=== PATIENT | male | born 2000 | race Caucasian/White ===

== ENCOUNTER 2020-11-02 10:33 | Emergency (ER) | payer OTHER ==
[2020-11-02] MEDS ORDERED: ONDANSETRON HCL INJ/PF 4 MG/2 ML SDV IV ONE (10:54)
[2020-11-02] MEDS ORDERED: NORMAL SALINE 1000 ML 1,000 ML IV ONE (10:54)
--- NOTE | 2020-11-02 10:56 | ER Document Report ---
ED Medical Screen (RME) - General Chief Complaint: Vomiting Stated Complaint: VOMITING Time Seen by Provider: 11/02/20 10:54 Notes: Patient presents complaining of multiple complaints including sore throat cough, nausea vomiting and diarrhea for the past 2 days. Patient denies any fever or urinary symptoms. Patient reports vomiting multiple times yesterday although no episodes today. Patient reports diarrhea x1 episode today. Patient does report sick contacts in the household recently. I have greeted and performed a rapid initial assessment of this patient. A comprehensive ED assessment and evaluation of the patient, analysis of test results and completion of the medical decision making process will be conducted by additional ED providers. (DANNY RIOS) - Related Data Allergies/Adverse Reactions: No Known Allergies Allergy (Verified 11/02/20 10:51) Physical Exam - HEENT Pharynx: Erythema. No: Peritonsillar abscess - Respiratory Respiratory status: No respiratory distress Breath sounds: Nonproductive cough - Vital signs Vitals: Temp Pulse Resp BP Pulse Ox 98.2 F 95 20 146/75 H 98 11/02/20 10:47 11/02/20 10:47 11/02/20 10:47 11/02/20 10:47 11/02/20 10:47 Course - Vital Signs Vital signs: Temp Pulse Resp BP Pulse Ox 98.2 F 95 20 146/75 H 98 11/02/20 10:52 11/02/20 10:47 11/02/20 10:47 11/02/20 10:47 11/02/20 10:47
--- NOTE | 2020-11-02 11:16 | ER Document Report ---
ED GI/ - General Chief Complaint: Flu Symptoms Stated Complaint: VOMITING Time Seen by Provider: 11/02/20 10:54 Mode of Arrival: Ambulatory Information source: Patient Notes: 11/02/20 10:52 - ED Nursing Note by JUDE DILLON Num: [id number] : 2000 Patient Age: 20 pt reports for the past 2 days he has not been able to eat. states when he does he vomits. states not really having nausea. states diarrhea this am. no vomiting today. diarrhea x 1 today. states unsure of fever. states no way to check. states sore throat. cough. ED Medical Screen (Areli mathews) - General Chief Complaint: Vomiting Stated Complaint: VOMITING Time Seen by Provider: 11/02/20 10:54 Notes: Patient presents complaining of multiple complaints including sore throat cough, nausea vomiting and diarrhea for the past 2 days. Patient denies any fever or urinary symptoms. Patient reports vomiting multiple times yesterday although no episodes today. Patient reports diarrhea x1 episode today. Patient does report sick contacts in the household recently. MY NOTES 20-year-old male arrives with chief complaint of having sore throat for 2 days with poor appetite and nausea vomiting diarrhea mild cough nonproductive and headache denies any nuchal rigidity. Patient works at [employer] and denies any fellow workers that are sick. He denies any family members that are sick or friends that are sick. TRAVEL OUTSIDE OF THE [place] IN LAST 30 DAYS: No - Related Data Allergies/Adverse Reactions: No Known Allergies Allergy (Verified 11/02/20 12:05) Home Medications: vyvanse. ritalin. clonidine Past Medical History - General Information source: Patient - Social History Smoking Status: Former Smoker Cigarette use (# per day): No Chew tobacco use (# tins/day): Yes Smoking Education Provided: No Frequency of alcohol use: Social Drug Abuse: None Lives with: Family Family History: Reviewed & Not Pertinent Patient has suicidal ideation: No Patient has homicidal ideation: No Review of Systems - Review of Systems Constitutional: No symptoms reported, See HPI, Weakness EENT: No symptoms reported Cardiovascular: No symptoms reported Respiratory: No symptoms reported Gastrointestinal: No symptoms reported Genitourinary: No symptoms reported Male Genitourinary: No symptoms reported Musculoskeletal: No symptoms reported Skin: No symptoms reported Hematologic/Lymphatic: No symptoms reported Neurological/Psychological: No symptoms reported Physical Exam - Vital signs Vitals: Temp Pulse Resp BP Pulse Ox 98.2 F 95 20 146/75 H 98 11/02/20 10:47 11/02/20 10:47 11/02/20 10:47 11/02/20 10:47 11/02/20 10:47 Interpretation: Normal - General General appearance: Alert - HEENT Head: Normocephalic, Atraumatic Eyes: Normal Pupils: PERRL Sinus: Normal Nasal: Normal Mouth/Lips: Normal Mucous membranes: Dry Pharynx: Erythema Neck: Normal - Respiratory Respiratory status: No respiratory distress Chest status: Nontender Breath sounds: Normal Chest palpation: Normal - Cardiovascular Rhythm: Regular Heart sounds: Normal auscultation Murmur: No - Abdominal Inspection: Normal Distension: No distension Bowel sounds: Normal Tenderness: Nontender Organomegaly: No organomegaly - Rectal Prostate: Other - Deferred - Genitourinary Scrotum: Other - Deferred - Back Back: Normal, Nontender - Extremities General upper extremity: Normal inspection, Nontender, Normal color, Normal ROM, Normal temperature General lower extremity: Normal inspection, Nontender, Normal color, Normal ROM, Normal temperature, Normal weight bearing. No: Cristobal's sign - Neurological Neuro grossly intact: Yes Cognition: Normal Orientation: AAOx4 [place] Coma Scale Eye Opening: Spontaneous [place] Coma Scale Verbal: Oriented [place] Coma Scale Motor: Obeys Commands [place] Coma Scale Total: 15 Speech: Normal Motor strength normal: LUE, RUE, LLE, RLE Sensory: Normal - Psychological Associated symptoms: Normal affect, Normal mood - Skin Skin Temperature: Warm Skin Moisture: Dry Skin Color: Normal Course - Vital Signs Vital signs: Temp Pulse Resp BP Pulse Ox 98.2 F 95 20 146/75 H 98 11/02/20 10:52 11/02/20 10:47 11/02/20 10:47 11/02/20 10:47 11/02/20 10:47 - Laboratory Results Result Diagrams: 11/02/20 11:45 11/02/20 11:45 Laboratory Results Interpreted: 11/02/20 11/02/20 11:45 14:05 Sodium 136.5 L Urine Ketones 20 H Critical Laboratory Results Reviewed: Yes Attending or Supervising Physician who Reviewed Labs: KIZZY RAMOS JR - Radiology Results Critical Radiology Results Reviewed: Yes Attending or Supervising Physician who Reviewed Radiology: KIZZY RAMOS JR Discharge - Discharge Clinical Impression: Gastroenteritis due to norovirus, COVID-19 virus RNA test result unknown, Dehydration Condition: Stable Disposition: HOME, SELF-CARE Instructions: Vomiting ([facility]), COVID-19 Guidance for Persons Under Investigation, Antinausea Medication ([facility]) Additional Instructions: Off work as directed till after [place]; return to ER as needed avoid milk and meat products for least 48 hours. Try to consume brat diet that is bananas rice applesauce toast oliva adrián crackers until able to resume regular diet. Avoid aspirin orange juice or citrus or other consumption that is acidic. Do this for least 1 week. Encourage off work and avoidance with immunocompromised peoples or transplant people's. Please stay quarantined until your COVID-19 test returns. Prescriptions: Dexamethasone [Decadron 4 Mg Tablet] 4 mg PO DAILY #5 tablet Famotidine [Pepcid] 20 mg PO BID #20 tablet Promethazine HCl [Phenergan 25 mg Tablet] 1 - 2 tab PO Q6H PRN #15 tablet PRN Reason: Azithromycin [Zithromax 250 mg Tablet] 250 mg PO ASDIR PRN #6 tablet PRN Reason: Forms: Return to Work
--- NOTE | 2020-11-02 11:38 | RADIOLOGY REPORT (SQ) ---
EXAM DESCRIPTION: CHEST SINGLE VIEW IMAGES COMPLETED DATE/TIME: 11/02/2020 11:17 am REASON FOR STUDY: cough COMPARISON: None. EXAM PARAMETERS: NUMBER OF VIEWS: One view. TECHNIQUE: Single frontal radiographic view of the chest acquired. RADIATION DOSE: NA LIMITATIONS: None. FINDINGS: LUNGS AND PLEURA: No opacities, masses or pneumothorax. No pleural effusion. MEDIASTINUM AND HILAR STRUCTURES: No masses. Contour normal. HEART AND VASCULAR STRUCTURES: Heart normal in size. Normal vasculature. BONES: No acute findings. HARDWARE: None in the chest. OTHER: No other significant finding. IMPRESSION: NO ACUTE RADIOGRAPHIC FINDING IN THE CHEST. TECHNICAL DOCUMENTATION: JOB ID: [id number] 2010 [employer]- All Rights Reserved Reading location - IP/workstation name: [email or web address]
[2020-11-02 12:18] LABS: ABSOLUTE BASOPHILS # (AUTO) 0.1 10^3/uL (0.0-0.2); ABSOLUTE EOSINOPHILS # (AUTO) 0.5 10^3/uL (0.0-0.6); ABSOLUTE LYMPHOCYTES (AUTO) 1.5 10^3/uL (0.5-4.7); ABSOLUTE MONOCYTES (AUTO) 0.8 10^3/uL (0.1-1.4); ABSOLUTE NEUT (AUTO) 5.8 10^3/uL (1.7-8.2); EOSINOPHILS % (AUTO) 5.9 % (0-6); HEMATOCRIT 45.8 % (37.9-51.0); HEMOGLOBIN 15.7 g/dL (13.5-17.0); LYMPHOCYTES % (AUTO) 17.6 % (13-45); MEAN CORPUSCULAR HEMOGLOBIN 31.1 pg (27.0-33.4); MEAN CORPUSCULAR HGB CONC 34.3 g/dL (32.0-36.0); MEAN CORPUSCULAR VOLUME 91 fl (80-97); MONOCYTES % (AUTO) 9.4 % (3-13); PLATELET COUNT 211 10^3/uL (150-450); RED BLOOD COUNT 5.04 10^6/uL (4.35-5.55); RED CELL DISTRIBUTION WIDTH 13.1 % (11.5-14.0); SEGMENTED NEUTROPHILS % (AUTO) 66.1 % (42-78); TOTAL CELLS COUNTED % (AUTO) 100 %; WHITE BLOOD COUNT 8.7 10^3/uL (4.0-10.5)
[2020-11-02 12:34] LABS: ALBUMIN 4.7 g/dL (3.5-5.0); ALKALINE PHOSPHATASE 91 U/L (38-126); ANION GAP 6 (5-19); ASPARTATE AMINO TRANSFERASE 24 U/L (17-59); BILIRUBIN,DIRECT 0.1 mg/dL (0.0-0.4); BILIRUBIN,TOTAL 0.5 mg/dL (0.2-1.3); BLOOD UREA NITROGEN 11 mg/dL (7-20); CALCIUM 9.7 mg/dL (8.4-10.2); CARBON DIOXIDE 30 mmol/L (22-30); CHLORIDE 101 mmol/L (98-107); GLUCOSE 103 mg/dL (75-110); POTASSIUM 4.6 mmol/L (3.6-5.0); TOTAL PROTEIN 7.4 g/dL (6.3-8.2)
[2020-11-02 12:56] LABS: A TYPE INFLUENZA AG NEGATIVE (NEGATIVE); B INFLUENZA AG NEGATIVE (NEGATIVE)
[2020-11-02 14:23] LABS: APPEARANCE,URINE CLEAR; BILIRUBIN,URINE NEGATIVE (NEGATIVE); COLOR,URINE YELLOW; GLUCOSE, URINE NEGATIVE (NEGATIVE); KETONES,URINE 20 mg/dL (NEGATIVE); LEUKOCYTE ESTERASE,URINE NEGATIVE (NEGATIVE); NITRITE,URINE NEGATIVE (NEGATIVE); PROTEIN,URINE NEGATIVE (NEGATIVE); URINE SPECIFIC GRAVITY 1.008; UROBILINOGEN,URINE NEGATIVE mg/dL (<2.0)
[2020-11-02 16:44] VITALS: BP 139/69
== END 2020-11-02 17:01 | disposition home or self-care (01) ==
LOC: ER 10:33
DX: A08.11 Acute gastroenteropathy due to Norwalk agent (principal); J02.9 Acute pharyngitis, unspecified; E86.0 Dehydration; R11.2 Nausea with vomiting, unspecified; R05 Cough; Z20.828 Contact with and (suspected) exposure to other viral communicable diseases
CPT/HCPCS: 99284; 96361; 96374; 36415; 87070; 87880; 83690; 85025; 87635; 80053; 81001; 87804; 71045; J2405; J7030; C9803